=== PATIENT | male | born 1970 | race Caucasian/White ===

== ENCOUNTER 2020-03-05 00:40 | Outpatient (CLI) | payer BC, SELFPAY ==
[2020-03-05 18:59] LABS: SARS-CoV-2 RNA PCR Negative
== END 2020-03-05 00:41 | disposition home or self-care (01) ==
LOC: ANHCOVIDDT 00:40
PROVIDERS: Visit Provider Internal Medicine Gastroenterology
DX: Z01.818 Encounter for other preprocedural examination (principal); Z20.828 Contact with and (suspected) exposure to other viral communicable diseases
CPT/HCPCS: 87635; C9803; U0003

== ENCOUNTER 2020-03-09 01:09 | Day surgery (SDC) | payer BC, SELFPAY ==
[2020-03-02 10:07] VITALS: BMI 35.5
[2020-03-09 06:21] VITALS: BMI 34.4
[2020-03-09 06:22] VITALS: BP 127/77; PULSE 83; RESP 14; TEMP 36.7; O2SAT 98
[2020-03-09] MEDS: LACTATED RINGERS 1,000 ML 150 ML IV CONT (06:31)
--- NOTE | 2020-03-09 07:12 | WPDANESEPPF ---
Anes - Initial Pre Proc Eval Procedure: Operation Date: 03/09/20 07:30 Proposed Procedures p Screening Colonoscopy - Epi Delacruz MD Date/Time: 03/09/20 07:12 Surgeon: Epi Delacruz MD Pre Op Diagnosis: neoplasm screening, hx colon polyps Patient Data Age: 49 Gender: M Height: 5 ft 7 in Weight: 99.6 kg Last Vital Signs Temp 98.1 F 03/09/20 06:22 Pulse 83 03/09/20 06:22 Resp 14 03/09/20 06:22 BP 127/77 03/09/20 06:22 Pulse Ox 98 03/09/20 06:22 Allergies Allergy/AdvReac Type Severity Reaction Status Date / Time No Known Allergies Allergy Unknown Verified 03/09/20 06:20 Home Medications Medication Instructions Recorded Confirmed Type No Home Medications 03/02/20 03/09/20 History Patient hx anesthesia problems: none Family hx anesthesia problems: none PMFSH Past Medical History Medical History (Updated 03/09/20 @ 07:11 by Adams Medrano MD) NADIA (obstructive sleep apnea) Social History Social History Smoking packs per day: 2 Smoking cigarettes per day: 40.0 Years smoked: 3 Smoking pack-years: 6.00 Smoking status: Current every day smoker Tobacco type: cigarettes Alcohol intake: never Substance use type: does not use Living arrangements: with family Spiritual care concerns: No Anes - Eval Final PreProcedure Day of Procedure 03/09/20 07:12 Patient weight: overweight Heart: regular rate and rhythm Lungs: clear to auscultation Airway: Mallampati scale class II Neurological: alert and oriented Last oral intake: >/= 8 hours ASA classification: II Emergent: no Anesthetic plan: proceed Anesthesia type and monitoring: general GIVS and standard monitoring Informed Consent: The patient's anesthetic plan and its attendant risks and benefits were discussed with the patient/family/POA. Questions were solicited and answers provided to the satisfaction of the patient/family/POA.
--- NOTE | 2020-03-09 07:51 | WPDGICN ---
Assessment and Plan Assessment and plan (1) History of colon polyps: Code(s): Z86.010 - Personal history of colonic polyps Status: Acute Assessment and Plan: patient was found to have multiple colon polyps by colonoscopy 1 year ago. He presents today for follow-up examination. Previous polyps were both serrated adenomas, tubular adenomas and hyperplastic. Further recommendations will be given after endoscopy at this time. GI Consult Note Consult date/time: 03/09/20 07:51 HPI: Deng Brewer is a 49 year old male Presents for follow-up colonoscopy. Patient has a history of multiple medium-size colon polyps removed from the colon 1 year ago. At that time the histology was found to be both tubular adenomas, serrated polyps and hyperplastic polyps. Patient remains asymptomatic. He returns today for follow-up colonoscopy. Patient's current weight appetite bowel movements are normal. He denies abdominal pain. He has had no bleeding. His family history is noncontributory. Review of Systems Review of Systems: All systems reviewed & are unremarkable except as noted in HPI and below PMFSH Past Medical History Medical History NADIA (obstructive sleep apnea) Social History Social History Smoking packs per day: 2 Smoking cigarettes per day: 40.0 Years smoked: 3 Smoking pack-years: 6.00 Smoking status: Current every day smoker Tobacco type: cigarettes Alcohol intake: never Substance use type: does not use Living arrangements: with family Spiritual care concerns: No Meds Home Medications and Allergies Home Medications Medication Instructions Recorded Confirmed Type No Home Medications 03/02/20 03/09/20 History Allergies Allergy/AdvReac Type Severity Reaction Status Date / Time No Known Allergies Allergy Unknown Verified 03/09/20 06:20 Vital Signs Vital Signs - 24 hr 03/09/20 06:22 Temperature 98.1 F Pulse Rate 83 Respiratory Rate 14 Blood Pressure 127/77 Pulse Oximetry 98 Exam Narrative: Exam Narrative: Physical exam reveals patient to be alert. Vital signs stable. HEENT exam is unremarkable. Lungs are clear to auscultation and percussion. Heart is without murmur or extra sounds. Abdominal exam bowel sounds are present soft nontender with no organomegaly. Digital external rectal exam normal
[2020-03-09 07:54] VITALS: BP 98/66; PULSE 71; RESP 23; O2SAT 93
[2020-03-09 08:04] VITALS: BP 111/73; PULSE 65; RESP 19; O2SAT 96
[2020-03-09 08:14] VITALS: BP 118/77; PULSE 60; RESP 20; O2SAT 95
== END 2020-03-09 08:32 | disposition home or self-care (01) ==
PROVIDERS: Visit Provider Internal Medicine Gastroenterology
PROC: 0DJD8ZZ Inspection of Lower Intestinal Tract, Via Natural or Artificial Opening Endoscopic (ICD-10-PCS; CPT 45378; principal; 2020-03-09 07:30)
DX: Z12.11 Encounter for screening for malignant neoplasm of colon (principal); D12.2 Benign neoplasm of ascending colon; K63.5 Polyp of colon; K57.30 Diverticulosis of large intestine without perforation or abscess without bleeding; K64.8 Other hemorrhoids; G47.33 Obstructive sleep apnea (adult) (pediatric); F17.210 Nicotine dependence, cigarettes, uncomplicated
CPT/HCPCS: 45385; 45380; 88305; J2704; J7120

== ENCOUNTER 2022-10-19 10:31 | Outpatient (CLI) | payer BC, SELFPAY ==
[2022-10-19 14:05] LABS: Kit Draw Collected
== END 2022-10-19 10:32 | disposition home or self-care (01) ==
LOC: ANHGOSHLAB 10:32
PROVIDERS: PCP Family Medicine; Visit Provider Nurse Practitioner Family
DX: Z00.00 Encounter for general adult medical examination without abnormal findings (principal); Z12.5 Encounter for screening for malignant neoplasm of prostate; G47.33 Obstructive sleep apnea (adult) (pediatric); Z86.010 Personal history of colon polyps
CPT/HCPCS: 36415

== ENCOUNTER → 2022-10-22 09:45 | Outpatient (CLI) | payer BC, SELFPAY ==
--- NOTE | ~2022-10-22 | US_ITS ---
Testicular ultrasound with doppler. Indication: Right groin pain. Technique: Real-time sonography the scrotum was performed. Color flow Doppler and Doppler spectral an alysis were performed. Findings: The testes are homogeneous in echotexture bilaterally. There is no evidence of an intrates ticular mass. The right testis measures 3.4 x 2.6 x 3.2 cm and the left 4.0 x 2.2 x 2.8 cm. There is color-flow seen to both testes. Arterial and venous spectral waveforms are seen in both testes. There is no sonographic evidence of torsion. The head of the epididymis is visualized bilaterally and is within normal limits. Minimal hydroceles are noted. No hernia identified. Impression: No testicular mass or torsion. No hernia identified. Reviewed, dictated and finalized at [facility]. Impression: No testicular mass or torsion. No hernia identified.
== END ==
PROVIDERS: PCP Nurse Practitioner Family; Visit Provider Nurse Practitioner Family
DX: K40.90 Unilateral inguinal hernia, without obstruction or gangrene, not specified as recurrent (principal)
CPT/HCPCS: 76870; 93976

== ENCOUNTER 2022-11-02 15:05 | Outpatient (CLI) | payer BC, SELFPAY ==
--- NOTE | 2022-11-02 15:55 | ECG_ITS ---
Measurements Intervals [place] Rate: 67 P: 56 [place]: 149 QRS: -21 QRSD: 101 T: 36 QT: 389 QTc: 411 Interpretive Statements SINUS RHYTHM BORDERLINE LEFT AXIS DEVIATION [QRS AXIS < -20] OTHERWISE WITHIN NORMAL LIMITS NO PREVIOUS ECG AVAILABLE FOR COMPARISON Electronically Signed On 11-02-2022 16:13:36 CDT by Santos Scruggs M.D.
== END 2022-11-02 15:06 | disposition home or self-care (01) ==
PROVIDERS: PCP Nurse Practitioner Family; Visit Provider Anesthesiology
DX: K40.90 Unilateral inguinal hernia, without obstruction or gangrene, not specified as recurrent (principal); Z72.0 Tobacco use; Z01.818 Encounter for other preprocedural examination
CPT/HCPCS: 36415; 86850; 86900; 86901; 93005

== ENCOUNTER 2022-11-05 03:28 | Day surgery (SDC) | payer BC, SELFPAY ==
[2022-11-02 13:50] VITALS: BMI 36.3
--- NOTE | 2022-11-02 14:04 | PC.NURSE ---
Report to the Outpatient Waiting Room, entrance under the green pavilion located off [facility], at time __0900AM on date _11/05/22 . Planned Procedure Time: ___1100AM . Time changes happen often and if your time is changed the preop area will call you the afternoon before. - You and your TWO visitors will be asked to self-screen and do not enter if you have any COVID symptoms. - A mask is optional within the hospital at this time. Patients may have clear liquids (water, carbonated beverages, clear teas, apple juice) until 3 hours prior to surgery with a maximum of 20 ounces. - No food from midnight until time of surgery Take the following medications with a SIP of water the morning of surgery: __NONE DO NOT STOP ANY OF YOUR OTHER PRESCRIPTION MEDICATIONS PRIOR TO SURGERY ?EXCEPT THE FOLLOWING Medications to discontinue per physician N/A Date to take last dose___N/A Please no make-up, nail indonesian, hairspray, perfume, deodorant, or body powder the day of surgery. No jewelry (including any body piercings) or valuables the day of surgery, leave them at home. Please take a shower or bath the night before, or the morning of, surgery with a small bottle of HIBICLENS ( generic is called CHLORHEXIDINE GLUCONATE) SOLUTION OR DIAL antibacterial soap. Wear comfortable, loose fitting clothing. - Jewelry must be removed prior to entering the operating room. Rings and piercings that are not removed may be cut off. - The hospital will not accept responsibility for valuables. - Please leave all valuables, including medications, at home the day of surgery. If you are going home after surgery, a licensed motor bus driver must drive you home. - NO public transportation without another adult if you receive anesthesia. - We recommend that an adult stay with you for 24 hours following discharge. - We also recommend that you do not drive, make important decision, drink alcoholic beverages, or take any drugs that were not prescribed by your health care provider for at least 24 hours after your discharge time. Follow any additional instructions given to you from your surgeon. If you or anyone in your household have experienced Covid symptoms in the past week, please notify your surgeon or the nurse liaison at the phone number below for possible testing. Telephone instructions given to _Deng_and asked if any additional questions and then verbalized understanding. Patient advised to call surgeon office or pre surgery nurse liaison [phone] if any additional questions.
[2022-11-05] VITALS (12 sets, daily range): BP systolic 98–143; BP diastolic 62–83; PULSE 58–81; RESP 14–20; TEMP 36.3–36.9; O2SAT 93–99
[2022-11-05] MEDS: ACETAMINOPHEN 500 MG TABLET 1000 MG PO (09:34)
[2022-11-05] MEDS: LACTATED RINGERS 1,000 ML 30 ML IV CONT ×2 (09:50→13:05)
--- NOTE | 2022-11-05 10:28 | WPDANESEPPF ---
Anes - Initial Pre Proc Eval Procedure: Operation Date: 11/05/22 11:00 Proposed Procedures p Robotic Assisted Right Inguinal Hernia Repair with Mesh - Janis Bush MD s Excisional Biopsy Left Upper Quadrant Lipoma - Janis Bush MD Date/Time: 11/05/22 10:28 Surgeon: Janis Bush MD Pre Op Diagnosis: Rt Ing Hernia, Abd Wall Lipoma Patient Data Age: 52 Gender: M Height: 1.68 m Weight: 103.1 kg Last Vital Signs Temp 36.3 C L 11/05/22 10:05 Pulse 69 11/05/22 10:05 Resp 16 11/05/22 10:05 BP 143/83 H 11/05/22 10:05 Pulse Ox 98 11/05/22 10:05 O2 Del Method Room Air 11/05/22 10:05 Allergies Allergy/AdvReac Type Severity Reaction Status Date / Time No Known Allergies Allergy Unknown Verified 11/05/22 10:05 Home Medications Medication Instructions Recorded Confirmed Type No Home Medications 03/02/20 11/02/22 History Patient hx anesthesia problems: none Family hx anesthesia problems: none Results Review: All pre-operative results and documents have been reviewed as part of the pre-operative evaluation. [facility] Past Medical History Medical History History of colon polyps NADIA (obstructive sleep apnea) Surgical History Surgical History History of appendectomy Status post ORIF of fracture of ankle Family History Family History Father Diabetes mellitus Social History Social History Smoking packs per day: 2 Smoking cigarettes per day: 40.0 Years smoked: 30 Smoking pack-years: 60.00 Smoking status: Current every day smoker Tobacco type: cigarettes Alcohol intake: never Substance use: never Substance use type: does not use Lack of Transportation: No Lack of Food: Never True Current Housing: I Have Housing Concerned About Future Housing: No Difficulty Paying Gas/Electric Bills: No Difficulty Paying for Meds: No Currently Unemployed: No Education: Trade/Vocational Certificate Difficulty w/ Childcare or Family Care: No Living arrangements: with family Occupation/Education: occupation 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 Informed Consent: The patient's anesthetic plan and its attendant risks and benefits were discussed with the patient/family/POA. Questions were solicited and answers provided to the satisfaction of the patient/family/POA.
[2022-11-05] MEDS: KETOROLAC 15 MG/ML VIAL (*BKC) IV PUSH (10:36)
--- NOTE | 2022-11-05 11:09 | WPDHPUPDATE1 ---
History and Physical Update Update Date/Time: 11/05/22 11:09 History and Physical has been reviewed, including an updated exam of the patient. There are NO changes in the patient's condition. Risks, benefits, and alternatives have been discussed and questions answered. Patient agrees to proceed with procedure.
[2022-11-05] MEDS: ceFAZolin 2 GM/D5W 50 ML 2 GM/50 ML BAG IVPB (11:27)
[2022-11-05] MEDS: BUPIVACAINE/EPINEPHRINE 0.5% 30 ML VIAL INFILTRATE (11:52)
--- NOTE | 2022-11-05 13:18 | P.OP_ITS ---
Procedure Note - Detailed Date of Procedure 11/05/22 Pre-op Diagnosis right inguinal hernia, left upper abdomen subcutaneous mass Post-op Diagnosis Same Procedure Performed robotic assisted repair right indirect inguinal hernia with mesh, excisional biopsy left upper abdominal subcutaneous mass Surgeon Janis Bush MD Anesthesia General Indications 52-year-old male presenting to the office with a right inguinal hernia. Patient reports hernia slightly larger and becoming more symptomatic over time. Patient also with noted left upper abdominal subcutaneous mass, likely lipoma. Findings Left upper abdominal subcutaneous mass, right indirect inguinal hernia Description of Procedure Patient was brought into the operating room and placed in the supine position. After adequate induction of general anesthesia, the patient was prepped and draped in normal sterile fashion. A time-out was then done to verify the patient's identity, as well as the procedure being performed. I began by making an incision in the left upper abdomen over the area of this subcutaneous mass. This mass was well circumscribed and located entirely within the subcutaneous tissue. I was able to bluntly dissect around the mass using the hemostat. I was then able to excise the mass in full. It was sent to pathology for further review. A Veress needle was then placed into the peritoneal cavity. CO2 gas was then insufflated and after adequate pneumoperitoneum was achieved, the Veress needle was removed. I then placed an 8 mm trocar through this incision. I then placed the endoscope through this trocar site and under direct visualization placed 2 further 8 mm ports in the supraumbilical region and left mid abdomen. The [employer] robot was then docked to the 3 trocar sites. I then scrubbed out and went to the robotic console. Upon examining the pelvis, it was noted that the patient had a moderate right inguinal hernia. The left side was examined and no hernia defect was noted. I began by making a preperitoneal flap approximately 6 cm superior to the defect. This flap was carried medially past the umbilical ligaments in laterally to the transversalis. It then began dissection of my medial compartment taking this down to the pubic tubercle. I then began the lateral dissection taking this down to the transversalis fascia. Once these compartments were achieved, I began dissection around the cord structures. A indirect hernia was noted at this point. Using careful dissection, was able to reduce indirect hernia sac off the cord structures. Once this was adequately done, I went ahead and placed a large piece of 3D Max mesh into the abdominal cavity. The mesh was carefully positioned, centering the center of the mesh over the indirect defect. Once this was done, was very satisfied with our repair. Using 3-0 Vicryl sutures, I tacked the mesh medially to Kumar's ligament. Two lateral sutures were placed from the mesh to the transversalis fascia. I then closed the peritoneal flap with a running 2.0 V Lock suture. The abdomen was then desufflated, and all ports were removed. All incisions were then closed with the 4.0 monocryl suture. Dermabond was placed on each wound. The patient tolerated the procedure well, was extubated in the operating room postoperatively, and will now be transferred to the recovery room in stable condition. Implants large 3DMax mesh Estimated Blood Loss 10 Drains No Packing No Pathology None sent Complications No immediate complications Condition Stable Disposition PACU [facility] Billing Surgery - Charge Forward: Surgery Billing
[2022-11-05] MEDS: fentaNYL CITRATE INJ (*CRX) 100 MCG/2 ML VIAL 25 MCG IV PUSH ×8 (13:35→14:24)
[2022-11-05] MEDS: oxyCODONE HCL (*CRX) 5 MG TAB IR PO (14:48)
--- NOTE | 2022-11-05 17:16 | SUR.PHASEII ---
[facility] IN [place] ALICE CALLED TO SAY THAT THEY DIDN'T CARRY THE 7.5/325 HYDROCODONE WITH TYLENOL; DR. GRADY CALLED AND WILL CHANGE ORDER. pATIENT NOTIFIED.
== END 2022-11-05 16:05 | disposition home or self-care (01) ==
PROVIDERS: PCP Nurse Practitioner Family; Visit Provider Surgery
PROC: 8E0Y4CZ Robotic Assisted Procedure of Lower Extremity, Percutaneous Endoscopic Approach (ICD-10-PCS; CPT 49650; principal; 2022-11-05 11:00)
PROC: (CPT 49650; 2022-11-05 11:00)
DX: K40.90 Unilateral inguinal hernia, without obstruction or gangrene, not specified as recurrent (principal); D17.1 Benign lipomatous neoplasm of skin and subcutaneous tissue of trunk; G47.33 Obstructive sleep apnea (adult) (pediatric); F17.210 Nicotine dependence, cigarettes, uncomplicated; E66.9 Obesity, unspecified; Z68.36 Body mass index [BMI] 36.0-36.9, adult
CPT/HCPCS: 49650; 22902; S2900; 88304; A9270; C1781; J0330; J0690; J1100; J1170; J1885; J2250; J2405; J2704; J3010; J7120

== ENCOUNTER 2023-04-29 02:39 | Day surgery (SDC) | payer BC, SELFPAY ==
[2023-04-04 11:50] VITALS: BMI 34.5
--- NOTE | 2023-04-26 11:04 | SUR.PREOP ---
Patient called regarding upcoming procedure. Voicemail left regarding appointment times.
[2023-04-29 06:46] VITALS: BP 129/76; PULSE 67; RESP 20; TEMP 36.6; O2SAT 97; BMI 34.9
[2023-04-29] MEDS: LACTATED RINGERS 1,000 ML 150 ML IV CONT (06:59)
--- NOTE | 2023-04-29 07:42 | PM.HPGS ---
History of Present Illness History of Present Illness Consent: Risks, benefits, and alternatives have been discussed and questions answered. Patient agrees to proceed with procedure. Chief complaint: personal h/o colon polyps Narrative: Deng Brewer is a 52 year old male with colon polyps in 2019 Review of Systems Constitutional: Constitutional: Denies headache(s) and Denies weakness Eyes: Eyes: Denies blurry vision ENT: Reports Normal hearing present, Denies headache(s) and Denies neck pain Cardiovascular: Cardiovascular: Denies chest pain and Denies dyspnea Respiratory: Respiratory: Denies dyspnea Gastrointestinal: Gastrointestinal: Reports no additional gastrointestinal complaints Genitourinary: Genitourinary: Denies dysuria Musculoskeletal: Musculoskeletal: Denies neck pain Integumentary/Breasts: Skin/Breast: Denies dry skin Neurologic: Reports Normal hearing present, Denies headache(s) and Denies weakness Psychiatric: Psychiatric: Denies anxiety Endocrine: Endocrine: Denies change in body appearance Hematologic/Lymphatic: Hematologic/Lymphatic: Denies easy bleeding Allergic/Immunologic: Allergic/Immunologic: Denies urticaria PMFSH Past Medical History Medical History History of colon polyps NADIA (obstructive sleep apnea) Surgical History Surgical History History of appendectomy S/P hernia surgery robotic assisted repair right indirect inguinal hernia with mesh, excisional biopsy left upper abdominal subcutaneous mass on 11/05/22 PDC Status post ORIF of fracture of ankle Family History Family History Father Diabetes mellitus Social History Social History Smoking packs per day: 2 Smoking cigarettes per day: 40.0 Years smoked: 35 Smoking pack-years: 70.00 Smoking status: Current every day smoker Tobacco type: cigarettes Alcohol intake: never Substance use: never Substance use type: does not use Lack of Transportation: No Lack of Food: Never True Current Housing: I Have Housing Concerned About Future Housing: No Difficulty Paying Gas/Electric Bills: No Difficulty Paying for Meds: No Currently Unemployed: No Education: Trade/Vocational Certificate Difficulty w/ Childcare or Family Care: No Living arrangements: with family Occupation/Education: occupation 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[employer] Spiritual care concerns: No Meds Home Medications and Allergies Home Medications Medication Instructions Recorded Confirmed Type No Home Medications 04/04/23 04/29/23 History Allergies Allergy/AdvReac Type Severity Reaction Status Date / Time No Known Allergies Allergy Unknown Verified 04/29/23 06:44 Vital Signs Vital Signs - 24 hr 04/29/23 06:46 Temperature 98 F Pulse Rate 67 Respiratory Rate 20 Blood Pressure 129/76 Pulse Oximetry 97 Oxygen Delivery Room Air Exam Const: General: comfortable and no acute distress HENMT: Face/Nose/Sinus: Normal nares present Eyes: General: appearance normal, both eyes and all related structures Neck: Neck: no JVD Resp: Auscultation: clear to auscultation bilaterally Cardio: Rate: regular rate Rhythm: regular rhythm GI: Inspection: non-distended GI Palp: Yes Soft to palpation Skin: General skin exam: normal color Neuro: General: gait normal Speech: normal speech Extrem: General: normal to inspection Psych: Mental Status: mental status grossly normal Assessment and Plan Assessment and plan (1) History of colon polyps: Code(s): Z86.010 - Personal history of colonic polyps Status: Acute Assessment and Plan: colonoscopy
--- NOTE | 2023-04-29 07:46 | P.PNAN_ITS ---
Anes - Initial Pre Proc Eval Procedure: Operation Date: 04/29/23 08:00 Proposed Procedures p Colonoscopy - Naseem Tinajero MD Date/Time: 04/29/23 07:46 Surgeon: Naseem Tinajero MD Pre Op Diagnosis: personal h/o colon polyps Patient Data Age: 52 Gender: M Height: 1.7 m Weight: 101.1 kg Last Vital Signs Temp 98 F 04/29/23 06:46 Pulse 67 04/29/23 06:46 Resp 20 04/29/23 06:46 BP 129/76 04/29/23 06:46 Pulse Ox 97 04/29/23 06:46 O2 Del Method Room Air 04/29/23 06:46 Allergies Allergy/AdvReac Type Severity Reaction Status Date / Time No Known Allergies Allergy Unknown Verified 04/29/23 06:44 Home Medications Medication Instructions Recorded Confirmed Type No Home Medications 04/04/23 04/29/23 History Patient hx anesthesia problems: none Family hx anesthesia problems: none Results Review: All pre-operative results and documents have been reviewed as part of the pre-operative evaluation. [facility] Past Medical History Medical History History of colon polyps NADIA (obstructive sleep apnea) Surgical History Surgical History History of appendectomy S/P hernia surgery robotic assisted repair right indirect inguinal hernia with mesh, excisional biopsy left upper abdominal subcutaneous mass on 11/05/22 PDC Status post ORIF of fracture of ankle Family History Family History Father Diabetes mellitus Social History Social History Smoking packs per day: 2 Smoking cigarettes per day: 40.0 Years smoked: 35 Smoking pack-years: 70.00 Smoking status: Current every day smoker Tobacco type: cigarettes Alcohol intake: never Substance use: never Substance use type: does not use Lack of Transportation: No Lack of Food: Never True Current Housing: I Have Housing Concerned About Future Housing: No Difficulty Paying Gas/Electric Bills: No Difficulty Paying for Meds: No Currently Unemployed: No Education: Trade/Vocational Certificate Difficulty w/ Childcare or Family Care: No Living arrangements: with family Occupation/Education: occupation 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 Informed Consent: The patient's anesthetic plan and its attendant risks and benefits were discussed with the patient/family/POA. Questions were solicited and answers provided to the satisfaction of the patient/family/POA.
[2023-04-29 08:07] VITALS: BP 95/60; PULSE 60; RESP 20; O2SAT 93
[2023-04-29 08:17] VITALS: BP 115/73; PULSE 60; RESP 17; O2SAT 97
[2023-04-29 08:34] VITALS: BP 121/76; PULSE 55; RESP 17; O2SAT 97
== END 2023-04-29 08:36 | disposition home or self-care (01) ==
PROVIDERS: PCP Nurse Practitioner Family; Visit Provider Internal Medicine Gastroenterology
PROC: 0DJD8ZZ Inspection of Lower Intestinal Tract, Via Natural or Artificial Opening Endoscopic (ICD-10-PCS; CPT 45378; principal; 2023-04-29 08:00)
DX: Z12.11 Encounter for screening for malignant neoplasm of colon (principal); D12.4 Benign neoplasm of descending colon; K64.8 Other hemorrhoids; K57.30 Diverticulosis of large intestine without perforation or abscess without bleeding; G47.33 Obstructive sleep apnea (adult) (pediatric); F17.210 Nicotine dependence, cigarettes, uncomplicated; E66.9 Obesity, unspecified; Z68.34 Body mass index [BMI] 34.0-34.9, adult; Z98.890 Other specified postprocedural states
CPT/HCPCS: 45380; 45385; 88305; J2704; J7120

== ENCOUNTER 2024-07-17 16:14 | Outpatient (CLI) | payer BC, SELFPAY ==
--- NOTE | ~2024-07-17 | XR_ITS ---
HISTORY: S49.91XA - Unspecified injury of right shoulder and upper... COMPARISON: None TECHNIQUE: 3 views of the right shoulder were performed FINDINGS: No acute fracture. The glenohumeral and acromioclavicular joint space is maintained The visualized portion of the adjacent right lung is clear. The humeral head is well seated within the glenoid fossa. IMPRESSION: No acute fracture or anterior dislocation. Reviewed, dictated and finalized at location A.
== END 2024-07-17 16:15 | disposition home or self-care (01) ==
LOC: ANHIMG 16:16
PROVIDERS: PCP Nurse Practitioner Family; Visit Provider Nurse Practitioner Family
DX: S49.91XA Unspecified injury of right shoulder and upper arm, initial encounter (principal); X58.XXXA Exposure to other specified factors, initial encounter
CPT/HCPCS: 73030

== ENCOUNTER 2024-07-21 09:25 | Outpatient (CLI) | payer BC, SELFPAY ==
[2024-07-21 12:56] LABS: Basophils Absolute Auto 0.1 K/mm3 (0.0-0.1); Basophils Percent Auto 0.9 % (0.2-1.2); Eosinophils Absolute Auto 0.4 K/mm3 (0-0.3); Hematocrit 45.2 % (42.0-52.0); Hemoglobin 14.3 g/dL (14.0-18.0); Immature Granulocyte Absolute 0.03 K/mm3 (0.00-0.031); Immature Granulocyte Percent A 0.3 % (0-0.5); Lymphocytes Absolute Auto 2.25 K/mm3 (0.9-3.2); Lymphocytes Percent Auto 23.1 % (18.3-44.2); Mean Corpuscular HGB Conc 31.6 g/dl (32-36); Mean Platelet Volume 10.8 fl (7.4-10.4); Monocytes Absolute Auto 1.2 K/mm3 (0.1-0.6); Neutrophils Absolute Auto 5.8 K/mm3 (1.3-6.7); Neutrophils Percent Auto 59.7 % (45.5-73.1); Platelet Count Result 286 k/mm3 (150-375); Red Blood Count 4.76 M/mm3 (4.6-6.20); Red Cell Distribution Width 14.1 % (11.5-14.5); White Blood Count 9.7 K/mm3 (4.5-10.0)
[2024-07-21 13:14] LABS: Alanine Aminotransferase 23 U/L (6-50); Alkaline Phosphatase 69 U/L (38-126); Anion Gap 7 mmol/L (4-12); Aspartate Amino Transferase 37 U/L (17-59); Bilirubin,Total 0.8 mg/dL (0.2-1.3); Blood Urea Nitrogen 14 mg/dL (9-20); Calcium 9.2 mg/dL (8.4-10.2); Carbon Dioxide 29 mmol/L (22-30); Chloride 104 mmol/L (98-107); Cholesterol 165 mg/dL (0-200); Estimated Glomerular Filt Rate > 60; Glucose 83 mg/dL (65-110); HDL Direct 40 mg/dL; Potassium 4.4 mmol/L (3.4-5.0); Sodium 140 mmol/L (137-145); Triglycerides 87 mg/dL (<150)
[2024-07-21 13:27] LABS: LDL Cholesterol Direct 93 mg/dL
== END 2024-07-21 09:26 | disposition home or self-care (01) ==
LOC: ANHGOSHLAB 09:26
PROVIDERS: PCP Nurse Practitioner Family; Visit Provider Nurse Practitioner Family
DX: Z00.00 Encounter for general adult medical examination without abnormal findings (principal); Z13.220 Encounter for screening for lipoid disorders; Z13.29 Encounter for screening for other suspected endocrine disorder
CPT/HCPCS: 36415; 80053; 80061; 84443; 85025

== ENCOUNTER 2024-08-15 07:47 | Outpatient (CLI) | payer BC, SELFPAY ==
--- NOTE | ~2024-08-15 | MR_ITS ---
MRI of the right shoulder Technique: Axial proton-density fat-sat images, coronal proton density fat-sat and T2 fat-sat images, and sagittal T1-weighted and T2 fat-sat images were acquired. Clinical History: Pain Findings: There is advanced AC joint degenerative change, with subacromial spur and mild reactive mar row edema about the joint. Coracoclavicular, coracohumeral, and coracoacromial ligaments appear intac t. Supraspinatus and infraspinatus tendons are intact, with mild to moderate tendinosis. No definite par tial or full-thickness tear. Subscapularis tendon is intact with mild to moderate tendinosis. Tendon of long head of the biceps is intact. There is near complete circumferential extensive degenerative tearing of the glenoid labrum. There is severe glenohumeral joint degenerative change with joint space narrowing and extensive subch ondral cystic change in the glenoid. There is diffuse high-grade chondromalacia of the glenoid in par ticular with inferomedial humeral head osteophyte present. Inferior glenohumeral ligament is intact. Small to moderate glenohumeral joint effusion present. No f luid distention of the subacromial/subdeltoid bursa. No muscle atrophy or edema. Impression: Severe glenohumeral joint osteoarthritis, as detailed above. Extensive degenerative tearing of the glenoid labrum, with near circumferential involvement. Mild rotator cuff tendinosis without partial or full-thickness tear. Advanced AC joint degenerative change. Reviewed, dictated and finalized at [facility]. Impression: Severe glenohumeral joint osteoarthritis, as detailed above. Extensive degenerative tearing of the glenoid labrum, with near circumferential involvement. Mild rotator cuff tendinosis without partial or full-thickness tear. Advanced AC joint degenerative change.
== END 2024-08-15 07:48 | disposition home or self-care (01) ==
PROVIDERS: PCP Nurse Practitioner Family; Visit Provider Nurse Practitioner Family
DX: S43.431A Superior glenoid labrum lesion of right shoulder, initial encounter (principal); M19.011 Primary osteoarthritis, right shoulder; M75.31 Calcific tendinitis of right shoulder; X58.XXXA Exposure to other specified factors, initial encounter
CPT/HCPCS: 73221